=== PATIENT | female | born 1970 | race Caucasian/White ===

== ENCOUNTER → 2016-05-19 | Outpatient (CLI) | payer SELFPAY | LOC: MOB LAB 12:24 | PROVIDERS: ATTEND Physician Assistant Medical | DX: N30.01 Acute cystitis with hematuria (principal) | CPT/HCPCS: 87088 ==

== ENCOUNTER → 2016-05-21 | Outpatient (CLI) | payer SELFPAY ==
[2016-05-21 08:45] LABS: BASOPHILS # (AUTO) 0.01 10*3/UL; BASOPHILS % (AUTO) 0.1 % (0-1); HEMATOCRIT 40.9 % (37.0-47.0); HEMOGLOBIN 13.9 g/dL (12.0-16.0); IMM GRAN % (AUTO) 0 % (0-5); IMM GRAN# (AUTO) 0 10*3/UL; LYMPHOCYTES # (AUTO) 0.46 10*3/uL; LYMPHOCYTES % (AUTO) 6.4 % (10-50); MEAN CORPUSCULAR HEMOGLOBIN 27.3 PG (27-31); MEAN PLATELET VOLUME 8.6 FL (7.4-12.2); MONOCYTES # (AUTO) 0.33 10*3/UL (0.3-0.8); MONOCYTES % (AUTO) 4.6 % (5-15); NEUTROPHILS # (AUTO) 6.12 10*3/UL; NEUTROPHILS % (AUTO) 84.9 % (50-80); RDW COEFFICIENT OF VARIATION 14.3 % (11.5-14.5); RED BLOOD COUNT 5.09 10^6/uL (4.20-5.40); WHITE BLOOD COUNT 7.21 10^3/uL (4.8-10.8)
[2016-05-21 08:53] LABS: AMYLASE 39 U/L (30-110); ASPARTATE AMINO TRANSFERASE 20 IU/L (8-39); BILIRUBIN,TOTAL 0.8 mg/dL (0.3-1.2); BLOOD UREA NITROGEN 14 mg/dL (7-22); BUN/CREATININE RATIO 15.55 (6-20); CALCIUM 9.9 mg/dL (8.7-10.7); CHLORIDE 103 meq/L (98-112); CREATININE 0.9 mg/dL (0.50-1.20); EST GLOMERULAR FILTRATION > 60 (>60 ml/min/1.73m(2)); GLUCOSE 104 mg/dL (78-110); POTASSIUM 4.4 meq/L (3.8-5.2); SODIUM 141 meq/L (135-145); TOTAL PROTEIN 6.4 g/dL (6.1-8.0)
[2016-05-21 09:00] LABS: PLATELET MORPHOLOGY COMMENT NORMAL MORPHOLOGY (NORM)
--- NOTE | 2016-05-21 09:42 | DI ---
KUB and UPRIGHT ABDOMEN, 05/21/2016 8:16 AM: Clinical History: Abdominal pain. Previous Exam: None at this facility. There are no soft tissue or bony abnormalities. Bowel gas pattern, psoas margins, and flank stripes a re normal. There is no free air or fluid. There are no abnormal radiodensities. Reading: Normal KUB and upright exam.
--- NOTE | 2016-05-21 12:25 | DI ---
CT ABDOMEN SCAN WITHOUT IV CONTRAST, 05/21/2016 11:15 AM : Clinical History: Flank pain. Previous Exam: None at this facility. Scans are performed from the lower lung bases through the liver and kidneys without IV contrast. Sagi ttal and coronal reformatted images are generated. The lung bases are clear. The liver is normal. The patient is status post cholecystectomy. Both adren al glands and pancreas are normal. There is splenomegaly. Both kidneys are normal in size, shape, pos ition and contour. There is no hydronephrosis or hydroureter. No renal or ureteral calculi are presen t. There are no abnormal retrocrural or periaortic nodes. No ascites is present. READIN. Both kidneys and ureters are normal. 2. Splenomegaly. CT PELVIS SCAN WITHOUT IV CONTRAST, 05/21/2016 11:15 AM : Clinical History: See above. Previous Exam: None. Scans are performed from the inferior margin of the liver and kidneys to the symphysis pubis without IV contrast. There is no free fluid collection and there is no adenopathy. The appendix is not visualized and faustina tional history supplied by the attending provider indicated the patient is status post appendectomy. There is no inflammatory mass in the cecal tip or in the right lower quadrant. The small bowel, termi nal ileum, and ileocecal valve are normal. The colon is also normal. There is a small umbilical herni a through which only mesenteric fat has herniated. The patient is status post hysterectomy and bilate ral salpingo-oophorectomy. READING: Normal CT pelvis scan.
== END ==
LOC: MOB RAD 08:18
PROVIDERS: ATTEND Physician Assistant Medical
DX: R10.84 Generalized abdominal pain (principal); R11.2 Nausea with vomiting, unspecified; R16.1 Splenomegaly, not elsewhere classified
CPT/HCPCS: 36415; 74020; 74176; 80053; 82150; 83690; 85025